=== PATIENT | female | born 1985 ===

== ENCOUNTER 2018-09-06 12:16 | Emergency (ER) | payer OTHER ==
[2018-09-06] MEDS ORDERED: Iohexol 240 (50 ml) PO STA (12:53)
[2018-09-06] MEDS ORDERED: Iohexol 240 (50 ml) ONE (13:05)
[2018-09-06] MEDS ORDERED: Sodium Chloride 0.9% 1,000 ML IV STA (13:06)
[2018-09-06 13:17] LABS: BASO % 0.5 % (0.0-2.0); EOS % 0.4 % (0.0-4.0); HEMOGLOBIN 13.3 g/dL (12.0-16.0); LYMPH # 1.5 K/uL (1.0-4.3); LYMPH % 39.1 % (20.0-40.0); MEAN CELL VOLUME 90.5 fl (81.0-99.0); MEAN CORPUSCULAR HEMOGLOBIN 30.1 pg (27.0-31.0); MEAN CORPUSCULAR HGB CONC 33.3 g/dL (33.0-37.0); MEAN PLATELET VOLUME 10.1 fl (7.2-11.7); MONO # 0.3 K/uL (0.0-0.8); MONO % 8.1 % (0.0-10.0); NEUT # 2.1 K/uL (1.8-7.0); NEUT % 51.9 % (50.0-75.0); NRBC % 0.1 % (0.0-0.0); RBC 4.42 Mil/uL (3.80-5.20); RED CELL DISTRIBUTION WIDTH 14.5 % (11.5-14.5); WHITE BLOOD COUNT 3.9 K/uL (4.8-10.8)
--- NOTE | 2018-09-06 13:28 | ED PDOC ---
HPI: Abdomen Time Seen by Provider: 09/06/18 12:41 Chief Complaint (Nursing): Abdominal Pain Chief Complaint (Provider): flank pain History Per: Patient History/Exam Limitations: no limitations Outside of [place] travel?: No Current Symptoms Are (Timing): Still Present Additional Complaint(s): 33 y/o F with hx of asthma as a child who presents with Right flank pain for the past 10 days. Pt states that she has been suffering with intermittent episodes of similar flank pain since she was 14yrs old and was given Neural (injection medication including Lamotrigine[place] for unknown diagnosis except for possible urine infections. She has never had a study to evaluate for kidney stones in the past. She states that she had been in her [place] until 10 days ago when she began having similar Right flank pain, worse with walking and bending forward that radiates down her left leg. The pain became unbearable yesterday so she gave herself an injection of Neural without any improvement. She has not taken any other meds including Advil. Denies N/V, diarrhea, fever, chills, night sweats. She states that her pain goes from her Right flank down her Right buttock to the front of her Right leg. The pain is unbearable now. Denies hx of DM, HL, HTN, nephrolithiasis. Past Medical History Vital Signs: Last Vital Signs Temp 98.2 F 09/06/18 12:35 Pulse 75 09/06/18 12:35 Resp 22 09/06/18 12:35 BP 121/86 09/06/18 12:35 Pulse Ox 100 09/06/18 12:35 - Allergies Allergies/Adverse Reactions: Allergies Allergy/AdvReac Type Severity Reaction Status Date / Time No Known Allergies Allergy Verified 09/06/18 12:35 Physical Exam - Reviewed Nursing Documentation Reviewed: Yes Vital Signs Reviewed: Yes - Physical Exam Appears: Positive for: Uncomfortable (severe pain, tearful) Head Exam: Positive for: ATRAUMATIC Skin: Positive for: Normal Color ENT: Positive for: Normal ENT Inspection Cardiovascular/Chest: Positive for: Regular Rate, Rhythm Respiratory: Positive for: Normal Breath Sounds Gastrointestinal/Abdominal: Positive for: Tenderness (with palpation of RLQ), Guarding. Negative for: Rebound Back: Positive for: Normal Inspection, Decreased ROM (with flexion of spine due to pain). Negative for: L CVA Tenderness, R CVA Tenderness, Vertebral Tenderness Extremity: Positive for: Other (+ pain in RLQ with straight leg raise on Right and left. ) Neurologic/Psych: Positive for: Alert, Oriented, Other (tearful) - Laboratory Results Result Diagrams: 09/06/18 13:11 09/06/18 13:15 - ECG O2 Sat by Pulse Oximetry: 100 Medical Decision Making Medical Decision Making: CBC, CMP Urine preg Urine dip Abd/pelvis CT w/ IV contrast to evaluate for nephrolithiasis Morphine 2mg IV x 1 16:49 Abd/Pelvis CT FINDINGS: LUNG BASES: The lung bases appear clear. No pleural effusions are seen. LIVER: Unremarkable. GALLBLADDER AND BILE DUCTS: The gallbladder appears within normal limits. No radioopaque gallstones are seen . No biliary ductal dilatation is evident. PANCREAS: Unremarkable. SPLEEN: Unremarkable. ADRENAL GLANDS: Unremarkable. KIDNEYS, URETERS, AND BLADDER: The kidneys appear within normal limits. There is no hydronephrosis or hydroureter. No urinary calculi are seen. STOMACH AND BOWEL: Unremarkable appearance of the stomach and bowel. No evidence of bowel obstruction. No evidence suggesting enteritis or colitis. APPENDIX: No evidence of acute appendicitis on CT examination. PERITONEUM: No free fluid. No free air. LYMPH NODES: No lymphadenopathy is evident. REPRODUCTIVE: Simple 2.5 cm left ovarian cyst is seen. The uterus and ovaries are otherwise unremarkable. VASCULATURE: No evidence of abdominal aortic aneurysm. BONES: No aggressive appearing osseous lesion. No acute osseous pathology evident. IMPRESSION: Simple 2.5 cm left ovarian cyst is seen. Otherwise negative study. No urinary calculi are seen. Disposition - Disposition Condition: STABLE Forms: [employer] ([place])
[2018-09-06 13:38] LABS: ALB/GLOB RATIO 1.1 (1.0-2.1); ALBUMIN 4.5 g/dL (3.5-5.0); ALT/SGPT 34 U/L (9-52); AST/SGOT 31 U/L (14-36); BLOOD UREA NITROGEN 11 mg/dl (7-17); CALCIUM 9.7 mg/dL (8.4-10.2); GFR NON-AFRICAN AMERICAN > 60
[2018-09-06] MEDS ORDERED: Iohexol 300 100 ML IJ ONE (15:26)
[2018-09-06] MEDS ORDERED: Sodium Chloride 0.9% 50 ML IV ONE (15:27)
[2018-09-06 15:35] VITALS: RESP 19
[2018-09-06 18:53] VITALS: BP 120/78; PULSE 78; TEMP 97; O2SAT 98
--- NOTE | 2018-09-07 09:00 | CT ---
Date of service: 09/06/2018 PROCEDURE: CT Abdomen and Pelvis with and without intravenous contrast HISTORY: r/o nephrolithiasis, possible appendicitis COMPARISON: None. TECHNIQUE: Axial images of the abdomen were obtained in the pre contrast, portal venous and delayed phases of enhancement. Coronal and sagittal reformats were generated. Contrast dose: Radiation dose: Total exam DLP = 196.61 mGy-cm. This CT exam was performed using one or more of the following dose reduction techniques: Automated exposure control, adjustment of the mA and/or kV according to patient size, and/or use of iterative reconstruction technique. FINDINGS: LOWER THORAX: Unremarkable. LIVER: Unremarkable. No gross lesion or ductal dilatation. GALLBLADDER AND BILE DUCTS: Unremarkable. PANCREAS: Unremarkable. No gross lesion or ductal dilatation. SPLEEN: Unremarkable. ADRENALS: Unremarkable. No mass. KIDNEYS AND URETERS: Unremarkable. No hydronephrosis. No solid mass. VASCULATURE: Unremarkable. No aortic aneurysm. No aortic atherosclerotic calcification or mural plaque present. BOWEL: Unremarkable. No obstruction. No gross mural thickening. APPENDIX: Normal appendix. PERITONEUM: Unremarkable. No free fluid. No free air. LYMPH NODES: Unremarkable. No enlarged lymph nodes. BLADDER: Unremarkable. REPRODUCTIVE: 2.5 centimeter left ovarian cyst. BONES: No acute fracture. OTHER FINDINGS: None. IMPRESSION: 2.5 centimeter left ovarian cyst.
== END 2018-09-06 18:54 | disposition home or self-care (01) ==
LOC: H.ER 12:16
DX: N83.202 Unspecified ovarian cyst, left side (principal)
CPT/HCPCS: 74177; 80053; 81025; 85025; 96374; 96375; 99283; J1885; J2270; J7030; Q9967